=== PATIENT | female | born 1965 | race Caucasian/White ===

== ENCOUNTER 2020-08-23 09:57 | Outpatient (REF) | payer BC, SELFPAY ==
[2020-08-23 10:43] LABS: COVID-19 Test Negative (Negative)
== END 2020-08-23 09:58 | disposition home or self-care (01) ==
LOC: HO.LAB 09:57
PROVIDERS: Visit Provider Internal Medicine
DX: Z20.828 Contact with and (suspected) exposure to other viral communicable diseases (principal)
CPT/HCPCS: 87635

== ENCOUNTER 2020-11-23 09:00 | Outpatient (REF) | payer BC, SELFPAY | END 2020-11-23 09:01 | disposition home or self-care (01) | LOC: HO.LAB 09:00 | PROVIDERS: PCP Family Medicine; Visit Provider Surgery | DX: L98.9 Disorder of the skin and subcutaneous tissue, unspecified (principal); Z79.899 Other long term (current) drug therapy | CPT/HCPCS: 11402; 88305; 88307; 88329; 88342 ==

== ENCOUNTER 2021-12-20 09:05 | Outpatient (REF) | payer BC, SELFPAY ==
--- NOTE | ~2021-12-20 | XR_ITS ---
EXAMINATION: XR KNEE STANDING, BILATERAL XR KNEE, RIGHT CLINICAL INFORMATION: Right knee pain. COMPARISON: None TECHNIQUE: AP bilateral knee standing. Right knee lateral 1 view. FINDINGS: AP Bilateral Knee: There is normal maintained joint space in the medial and lateral compartment of both knees. There is a small avulsion fracture fragment along the lateral tibial plateau likely from recent injury. There is minimal soft tissue swelling. No bony erosive changes. No soft tissue swelling. Right Knee Lateral View: The patella is intact. There is a [id number] suprapatellar joint effusion. No visible fracture involving the patella, distal femur or the fibula. XR/XR knee standing BI IMPRESSION: Small avulsion fracture fragment lateral tibial plateau on AP view. [id number] suprapatellar joint effusion.
--- NOTE | ~2021-12-20 | XR_ITS ---
EXAMINATION: XR KNEE STANDING, BILATERAL XR KNEE, RIGHT CLINICAL INFORMATION: Right knee pain. COMPARISON: None TECHNIQUE: AP bilateral knee standing. Right knee lateral 1 view. FINDINGS: AP Bilateral Knee: There is normal maintained joint space in the medial and lateral compartment of both knees. There is a small avulsion fracture fragment along the lateral tibial plateau likely from recent injury. There is minimal soft tissue swelling. No bony erosive changes. No soft tissue swelling. Right Knee Lateral View: The patella is intact. There is a [id number] suprapatellar joint effusion. No visible fracture involving the patella, distal femur or the fibula. XR/XR knee RT 2V IMPRESSION: Small avulsion fracture fragment lateral tibial plateau on AP view. [id number]-ur-sedlxfif suprapatellar joint effusion.
== END 2021-12-20 09:06 | disposition home or self-care (01) ==
LOC: HO.HOSX 09:05
PROVIDERS: PCP Family Medicine; Visit Provider Orthopaedic Surgery
DX: M23.91 Unspecified internal derangement of right knee (principal); M25.461 Effusion, right knee; M25.561 Pain in right knee
CPT/HCPCS: 73560; 73565

== ENCOUNTER 2021-12-20 15:37 | Outpatient (REF) | payer BC, SELFPAY ==
--- NOTE | ~2021-12-20 | MR_ITS ---
EXAMINATION: MR KNEE WITHOUT CONTRAST, RIGHT CLINICAL INFORMATION: Pain in the right knee. COMPARISON: Radiographs from the same day. TECHNIQUE: MRI of the knee without contrast was performed using routine sequences on a high-field scanner. FINDINGS: MENISCI: Medial Meniscus: Intact Lateral Meniscus: Subtle undersurface fraying of the posterior horn near the root. No tears LIGAMENTS: Cruciate: ACL is disrupted at its mid substance. There is laxity of a few residual fibers. There is an anteriorly displaced stump of torn ACL fibers at the tibial insertion corresponding to an entrapped fragment. PCL is intact. Collateral: The MCL is sprained proximally at the deep fibers near the femoral origin (coronary ligaments). There is also likely a partial tear of the distal fibers at the insertion on the medial tibial plateau. Surrounding edema signal is present in this region with fluid in the pes anserine bursa. Posterolateral corner structures are intact. Fibular collateral ligament is intact. There is a Segond avulsion fracture at the lateral margin of the lateral tibial plateau corresponding to the attachment of the lateral capsular ligament (anterolateral ligament). EXTENSOR MECHANISM: Intact ARTICULAR CARTILAGE/BONE: Patellofemoral Compartment: There is mild chondral fissuring at the medial patellar facet. No significant chondral defects. Trochlear cartilage appears relatively well-preserved. Normal trochlear morphology. Medial Compartment: Normal Lateral Compartment: Articular cartilage is well-preserved. There is a subtle articular cortical depression fracture at the posterior margin of the lateral tibial plateau without significant articular cortical step-off. There is very subtle cortical impaction at the posterior nonarticular cortex. As noted above, there is a Segond avulsion fracture at the lateral margin of the lateral tibial plateau with lateral displacement of the fragment by 2 mm. JOINT FLUID AND BURSAE: Moderate-sized joint effusion. No Coombs's cyst. There is diffuse swelling and subcutaneous edema at the knee. Pes anserine bursitis is reactive to the adjacent MCL tear. MR/MR knee RT wo con IMPRESSION: 1. Near complete tear of the ACL. 2. Partial tear of the tibial insertion of the MCL with a proximal sprain of the femoral origin. 3. Segond fracture. 4. Intact menisci 5. Mild articular depression fracture at the posterior margin of the lateral tibial plateau. 6. Moderate-sized joint effusion.
== END 2021-12-20 15:38 | disposition home or self-care (01) ==
LOC: HO.MRI 15:37
PROVIDERS: Visit Provider Orthopaedic Surgery
DX: M23.91 Unspecified internal derangement of right knee (principal)
CPT/HCPCS: 73721

== ENCOUNTER → 2022-01-10 09:06 | Outpatient (BNVA) | payer BC, SELFPAY | PROVIDERS: PCP Family Medicine; Visit Provider Orthopaedic Surgery ==

== ENCOUNTER 2022-02-06 17:00 | Outpatient (RCR) | payer BC, SELFPAY ==
--- NOTE | 2021-12-26 18:07 | MHC.PT.EP ---
[facility] [place] Office [place] Office [place] Office [address] Sayda Bella [address] [phone] F: [phone] F: [phone] F: [phone] F: [phone] Physical Therapy Plan of Care Date of Evaluation: Date of Surgery: N/A Diagnosis: S83.511A sprain of anterior cruciate ligament of right knee, initial encounter S83.419A sprain of medial collateral ligament of unspecified knee, initial encounter Assessment: pt presents to PT secondary to recent fall experienced on 11/14/21. Recent xray and MRI (+) for Segond fracture, partial MCL tearing, and near complete ACL tear. pt is unsure if she wants to pursue surgical intervention at this time. pt presents to physical therapy with pain, decreased range of motion, decreased strength, impaired functional mobility, impaired postural awareness, and gait deviations. pt is a fair candidate for skilled PT due to age, potential remediation of impairments, typical disease/condition progression and prognosis, comorbidities, and motivation. pt would benefit from tailored strengthening and stretching exercise program, functional training, gait training, postural re-training, neuromuscular re-education, modalities as needed for pain, equipment safety demonstration. Frequency and Duration: The patient will be seen 2x/wk for 8 wks Short Term Goals: pt will be I w/ HEP to promote self-management of condition. pt will improve R knee flexion to 10 degrees to promote ease in stair navigation and tolerating sitting postures for seated ADLs. pt will ascend/descend 5 stairs using 1 handrail WBAT to promote ease in accessing home and primary living spaces. Marketing Project Lead Goals: pt will report a statistically significant improvement in self-reported outcome measure, LEFI, to promote return to PLOF. pt will improve R knee extension and hip flexion strength to 5/5 to improve ability to perform car transfers. pt will ambulate >2600' w/o AD WBAT on even ground to promote return to community ambulation for grocery shopping and social interaction. Treatment Plan: Modalities to reduce pain, spasms and effusion. Manual therapy to restore motion and function. Therapeutic exercise to improve strength and flexibility. Neuromuscular re-education for posture and balance. Therapeutic activities to return to functional activities of daily living. Electronically signed by: Anita Glynn PT, DPT Please sign and return to therapist. Thank you for your referral.
--- NOTE | 2022-02-12 14:43 | MHC.PT.DC ---
[facility] [place] Office [place] Office [place] Office [address] Sayda Bella [address] [phone] F: [phone] F: [phone] F: [phone] F: [phone] Physical Therapy Discharge Report Diagnosis: S83.511A sprain of anterior cruciate ligament of right knee, initial encounter S83.419A sprain of medial collateral ligament of unspecified knee, initial encounter Date of Surgery: N/A Date of Evaluation: 12/26/21 Date of Discharge: 02/12/22 Treatments to Date: 13 Cancellations to Date: No Shows to Date: Discharge Status: Achieved Goals Improved Function Independent with HEP Patient Elected to Stop Discharge Summary: The patient has achieved all short term and intermediate goals established at the initial evaluation. She has elected to go forward with ACL repair with [facility]. She continues to wear a soft knee brace for stability with weight bearing and ambulation. The patient was educated on proper form and mechanics for more dynamic lower extremity strengthening including static lunges, deadlifts, squats, and wall squats. All questions were answered at this time. She was advised to continue with her strengthening and cardio exercise leading up to her surgery to maximize pre-operative status and reduce post-operative morbidity. She is discharged from this physical therapy plan of care to her home exercise program. Electronically signed by: Anita Glynn PT, DPT Please sign and return to therapist. Thank you for your referral.
== END 2022-02-12 14:43 | disposition home or self-care (01) ==
LOC: HO.PT 17:00
PROVIDERS: Visit Provider Physician Assistant
DX: S83.511D Sprain of anterior cruciate ligament of right knee, subsequent encounter (principal); S83.11 Anterior subluxation and dislocation of proximal end of tibia
CPT/HCPCS: 97110; 97112; 97116; 97162; 97164; 97530

== ENCOUNTER 2022-05-08 17:00 | Outpatient (RCR) | payer BC, SELFPAY | END 2022-06-03 10:24 | disposition home or self-care (01) | LOC: HO.PT 17:00 | PROVIDERS: Visit Provider Orthopaedic Surgery | DX: Z98.890 Other specified postprocedural states (principal) | CPT/HCPCS: 97014; 97110; 97112; 97116; 97161; 97164; 97530 ==